=== PATIENT | male | born 2000 | race Two or more races ===

== ENCOUNTER 2021-12-07 22:14 | Emergency (ER) | payer OTHER ==
[~2021-12-07] VITALS: Ht 175.3 cm; Wt 77.0 kg
[2021-12-07 22:14] VITALS: BP 131/80
== END 2021-12-08 06:56 | disposition left against medical advice (07) ==
LOC: ER 22:14
DX: M79.10 Myalgia, unspecified site (principal); R07.81 Pleurodynia; Z53.21 Procedure and treatment not carried out due to patient leaving prior to being seen by health care provider; V89.2XXA Person injured in unspecified motor-vehicle accident, traffic, initial encounter; Y93.89 Activity, other specified; Y92.89 Other specified places as the place of occurrence of the external cause; Y99.8 Other external cause status